=== PATIENT | male | born 1950 | race Caucasian/White ===

== ENCOUNTER 2019-10-05 07:28 | Inpatient (IN) | payer BC, OTHER ==
[~2019-10-05] VITALS: Ht 180.3 cm; Wt 121.2 kg
[2019-10-05] MEDS ORDERED: ACETAMINOPHEN ES 500 MG TABLET ONE (07:39)
--- NOTE | 2019-10-05 07:48 | NUR ---
patient [id number], from home, c/o cough, fever, chills x 2 days 95% on room air. Connected to the monitor and pulse ox. kept comfortable, will continue to monitor accordingly.
[2019-10-05] MEDS ORDERED: IV NS 0.9% 500 ML IV ONE (08:00)
[2019-10-05] MEDS ORDERED: ACETAMINOPHEN ES 500 MG TABLET PO ONE (08:00)
[2019-10-05 08:17] LABS: APPEARANCE,URINE Slightly Cloudy (CLEAR); BILIRUBIN,URINE MODERATE (NEGATIVE); BLOOD, URINE Large Ery/uL (NEGATIVE); COLOR,URINE Dark (YELLOW); KETONES,URINE 15 (NEGATIVE); LEUKOCYTE ESTERASE ,URINE Negative (NEGATIVE); NITRITE, URINE Negative (NEGATIVE); PH,URINE 5.5 (5.0-8.0); PROTEIN,URINE >=300 mg/dl (NEGATIVE); UGLUCOSE Negative (NEGATIVE)
[2019-10-05 08:24] LABS: BACTERIA,URINE Few /HPF (None Seen); SQUAMOUS EPITHELIAL CELL,UR Few /HPF (None Seen); WBC,URINE 0-1 /HPF (0-3)
[2019-10-05 08:27] LABS: BASOPHILS % (AUTO) 0.4 % (0.0-2.0); EOSINOPHILS % (AUTO) 0.2 % (0.0-6.0); HEMATOCRIT 43 % (39-51); HEMOGLOBIN 14.5 g/dL (13.5-17.5); LYMPHOCYTES # (AUTO) 0.3 /CMM (0.8-4.8); LYMPHOCYTES % (AUTO) 6.3 % (20.0-44.0); MEAN CORPUSCULAR HGB CONC 34 g/dl (31.0-36.0); MEAN CORPUSCULAR VOLUME 87 fL (80-96); MONOCYTES # (AUTO) 0.1 /CMM (0.1-1.30); MONOCYTES % (AUTO) 2.2 % (2.0-12.0); NEUTROPHILS # (AUTO) 4.7 /CMM (1.8-8.9); NEUTROPHILS % (AUTO) 90.9 % (43.0-81.0); PLATELET COUNT (AUTO) 83 /CMM (150-450); RED BLOOD CELL COUNT(AUTO) 4.88 MIL/uL (4.5-6.0); WHITE BLOOD COUNT (AUTO) 5.2 K/uL (4.3-11.0)
[2019-10-05 08:42] LABS: CALCIUM, SERUM 9.3 mg/dL (8.5-10.1); CARBON DIOXIDE 17 mmol/L (21-32); CHLORIDE 98 mmol/L (98-107); GLUCOSE 123 mg/dL (74-106); POTASSIUM 3.6 mmol/L (3.5-5.1); SODIUM SERUM 136 mmol/L (136-145); UREA NITROGEN, BLOOD 26 mg/dL (7-18)
[2019-10-05 08:49] LABS: ALANINE AMINOTRANSFERASE 118 U/L (12-78); ALBUMIN 3.5 g/dL (3.4-5.0); ALKALINE PHOSPHATASE 131 U/L (46-116); ASPARTATE AMINOTRANSFERASE 53 U/L (15-37); B-TYPE NATRIURETIC PEPTIDE 809 PG/ML (0-125); TOTAL PROTEIN, SERUM 7.4 g/dL (6.4-8.2)
[2019-10-05 08:58] LABS: CREATINE KINASE, TOTAL 279 U/L (39-308); FERRITIN 263 ng/mL (8-388)
[2019-10-05] MEDS ORDERED: ROSU10TA29 PO (09:04)
[2019-10-05] MEDS ORDERED: LANS30CA56 PO (09:04)
[2019-10-05] MEDS ORDERED: VALS1TAB54 PO (09:04)
[2019-10-05] MEDS ORDERED: TRAZ-252 PO (09:04)
[2019-10-05] MEDS ORDERED: GABA-532 PO (09:05)
[2019-10-05] MEDS ORDERED: METH500T6 PO (09:05)
[2019-10-05] MEDS ORDERED: OXYC5TAB3 PO (09:05)
[2019-10-05] MEDS ORDERED: TAMS-12 PO (09:05)
[2019-10-05] MEDS ORDERED: IV NS 0.9% 1,000 ML BAG IV ONE (09:30)
[2019-10-05 09:43] LABS: C-REACTIVE PROTEIN 25.9 mg/dL (0.0-0.9); D-DIMER 13.75 mg/L(FEU (0.17-0.50)
[2019-10-05] MEDS ORDERED: CEFTRIAXONE 1GM BAG (ER ONLY) 50 ML IV ONE (09:43)
--- NOTE | 2019-10-05 09:48 | NUR ---
systems test technician at bedside for exam
[2019-10-05] MEDS ORDERED: CEFTRIAXONE 1GM BAG (ER ONLY) 1 GM/50 ML PIGGYBACK IV ONE (10:00)
[2019-10-05 10:04] LABS: BAND % (MANUAL) 6 % (0.0-5.0); EOSINOPHILS % (MANUAL) 2 % (0-4); LYMPHOCYTES % (MANUAL) 7 % (16-48); MONOCYTES % (MANUAL) 5 % (0-11.0); NEUTROPHILS % (MANUAL) 80 (42-76)
--- NOTE | 2019-10-05 10:09 | NUR ---
NURSING SUP GAVE 111-1.
--- NOTE | 2019-10-05 10:39 | NUR ---
report given to Rachel GONZALEZ for dean
[2019-10-05] MEDS ORDERED: ONDANSETRON HCL/PF 4 MG/2 ML VIAL IVP PRN (11:00)
[2019-10-05] MEDS ORDERED: ACETAMINOPHEN 325 MG TABLET PO PRN (11:00)
[2019-10-05] MEDS ORDERED: AZITHROMYCIN 500 MG in IV D5W 250 ML IV SCH (11:00)
[2019-10-05 11:17] LABS: BILIRUBIN,DIRECT 2.7 mg/dL (0.0-0.2)
--- NOTE | 2019-10-05 11:18 | NUR ---
wheeled patient via gurney accompanied by RN and emt in no distress. RN at bedside to assume care.
[2019-10-05 12:00] VITALS: BP 132/76
[2019-10-05 12:16] LABS: ABG BASE EXCESS -4.1 mmol/L; ABG OXYGEN SATURATION 96.5 % (92.0-98.5); ABG PCO2 30.1 mmHg (35.0-45.0); ABG PO2 84.3 mmHg (75.0-100.0); AaDO2 29.4 mmHg; COHb 1.3 % (0.5-1.5); MetHb 0.3 % (0.0-1.5); SITE, ABG Right Radial; VENT MODE, BG RA
[2019-10-05 13:54] VITALS: BP 132/76
--- NOTE | 2019-10-05 15:06 | NUR ---
CABLE REPAIRER NOTE: RECEIVED PATIENT FROM ER AT 1109 TODAY. UPON ADMISSION, PATIENT IS SATING 95% ON RA, PER DR GRADY, PRN O2 2L/MIN VIA NC TO KEEP O2 SAT > 92% NO SIGNS OF RESPIRATORY DISTRESS NOTED. NO SIGNS OF ACUTE DISTRESS NOTED. PATIENT IS ALERT AND ORIENTED X4, RESPONDS APPROPRIATELY. SKIN INTACT. AMBULATORY, STEADY GAIT. #20 ON LAC, FLUSHES WELL, C/D/I, NO SIGNS OF COMPLICATIONS NOTED. FULL CODE. NKA. DR LIZ AWARE OF PATIENT'S ADMISSION WITH ADMITTING ORDERS. INFORMED HIM TO REVIEW AND COMPLETE MED [place]. ISOLATION PRECAUTIONS FOR POSSIBLE COVID 19. MRSA AND COVID SWAB TAKEN IN ER, AWAITING RESULTS. ADMITTING ASSESSMENT COMPLETE. SAFETY MEASURES IMPLEMENTED, BED IN LOWEST POSITION, LOCKED, SIDE RAILS UP X2, CALL LIGHT WITHIN REACH. WILL CONTINUE TO MONITOR PATIENT FOR CHANGES. Addendum: 10/05/19 at 1510 by MAGALI MEYER RN PATIENT ON TELE MONITOR, SR IN THE 70S.
[2019-10-05 16:00] VITALS: BP 119/71
[2019-10-05] MEDS ORDERED: ACETAMINOPHEN 650 MG/20.3 ML UDC PO PRN (17:00)
[2019-10-05] MEDS ORDERED: oxyCODONE IR immediate release 5 MG PO PRN (17:30)
[2019-10-05] MEDS: METHOCARBAMOL (500MG) 500 MG TABLET PO SCH (17:39)
[2019-10-05] MEDS: GABAPENTIN 100 MG CAPSULE PO SCH (17:39)
--- NOTE | 2019-10-05 19:08 | NUR ---
RN CLOSING NOTE: PATIENT REMAINS IN BED. NO SIGNS OF RESPIRATORY/ ACUTE DISTRESS NOTED. TELE MONITOR SR IN THE 80S. SAFETY MEASURES IMPLEMENTED, BED IN LOWEST POSITION, LOCKED, SIDE RAILS UP X2, CALL LIGHT WITHIN REACH. PATIENT HAS ONLY BEEN TAKING HLD MED, VALSARTAN AND FLOMAX, WILL ENDORSE TO PM RN TO FOLLOW UP WITH MD IN REGARDS TO POSSIBLE DC OF THE MEDS THAT HAVE BEEN RECONCILED DURING ADMISSION. ALSO, PATIENT STATED THAT HE HAS HAD 4 BM THAT ARE MORE LOOSE THAN USUAL, WILL ENDORSE TO ONCOMING SHIFT RN TO COLLECT STOOL FOR C. DIFF. ALSO, WILL ENDORSE TO ONCOMING SHIFT RN FOR CONTINUITY OF CARE.
--- NOTE | 2019-10-05 19:55 | NUR ---
RN NOTES RECEIVED PATIENT IN BED. NO SIGNS OF ACUTE RESPIRATORY/ ACUTE CARDIAC DISTRESS NOTED. TELE MONITOR SR IN THE 80S. SAFETY MEASURES IMPLEMENTED, BED IN LOWEST POSITION, LOCKED, SIDE RAILS UP X2, CALL LIGHT WITHIN REACH. PATIENT HAS ONLY BEEN TAKING HOME MED, VALSARTAN AND FLOMAX, WILL ENDORSE TO AM RN TO FOLLOW UP WITH MD IN REGARDS TO POSSIBLE DC OF THE MEDS THAT HAVE BEEN RECONCILED DURING ADMISSION. ALL NEEDS ANTICIPATED, REPOSITIONED FOR COMFORT. CALL LIGHT WITH IN EASY REACH, KEEP CLEAN WARM DRY AND COMFORTABLE.PATIENT STATED THAT HE HAS HAD 4 BM THAT ARE MORE LOOSE THAN USUAL, INSTRUCTED TO CALL US TO COLLECT SPECIMEN ONCE HE POOP. PATIENT VERBALIZED UNDERSTANDING. SPECIMEN CUP PROVIDED. WILL CONTINUE TO MONITOR ACCORDINGLY.
[2019-10-05 20:00] VITALS: BP 102/69
[2019-10-05] MEDS: DOXYCYCLINE 100 MG in IV NS 0.9% 100 ML IV SCH (21:24)
[2019-10-05] MEDS: TAMSULOSIN 0.4 MG CAP.SR.24H PO SCH ×2 (21:24→21:35)
[2019-10-05] MEDS: TRAZODONE 50 MG TABLET PO SCH ×2 (21:25→21:34)
[2019-10-06] VITALS (8 sets, daily range): BP systolic 111–142; BP diastolic 68–90
[2019-10-06 06:17] LABS: BASOPHILS % (AUTO) 0.7 % (0.0-2.0); EOSINOPHILS % (AUTO) 1.4 % (0.0-6.0); HEMATOCRIT 38 % (39-51); LYMPHOCYTES # (AUTO) 0.6 /CMM (0.8-4.8); LYMPHOCYTES % (AUTO) 7.9 % (20.0-44.0); MEAN CORPUSCULAR HGB CONC 35 g/dl (31.0-36.0); MEAN CORPUSCULAR VOLUME 86 fL (80-96); MONOCYTES # (AUTO) 0.6 /CMM (0.1-1.30); MONOCYTES % (AUTO) 8.5 % (2.0-12.0); NEUTROPHILS # (AUTO) 6.1 /CMM (1.8-8.9); NEUTROPHILS % (AUTO) 81.5 % (43.0-81.0); PLATELET COUNT (AUTO) 86 /CMM (150-450); RED BLOOD CELL COUNT(AUTO) 4.38 MIL/uL (4.5-6.0); WHITE BLOOD COUNT (AUTO) 7.5 K/uL (4.3-11.0)
[2019-10-06 06:37] LABS: BILIRUBIN,TOTAL 1.9 mg/dL (0.2-1.0); CALCIUM, SERUM 8.9 mg/dL (8.5-10.1); CREATININE 1.1 mg/dL (0.6-1.3); POTASSIUM 3.5 mmol/L (3.5-5.1); TOTAL PROTEIN, SERUM 6.5 g/dL (6.4-8.2)
--- NOTE | 2019-10-06 06:47 | NUR ---
RN NOTES ALL NEEDS ATTENDED AND MET, ABLE TO REST AND SLEPT AT INTERVASL. PATIENT IN BED. NO SIGNS OF ACUTE RESPIRATORY/ ACUTE CARDIAC DISTRESS NOTED. TELE MONITOR SR IN THE 80S. SAFETY MEASURES IMPLEMENTED, BED IN LOWEST POSITION, LOCKED, SIDE RAILS UP X2, CALL LIGHT WITHIN REACH. PATIENT HAS ONLY BEEN TAKING HOME MED, VALSARTAN AND FLOMAX, WILL ENDORSE TO AM RN TO FOLLOW UP WITH MD IN REGARDS TO POSSIBLE DC OF THE MEDS THAT HAVE BEEN RECONCILED DURING ADMISSION. ALL NEEDS ANTICIPATED, REPOSITIONED FOR COMFORT. CALL LIGHT WITH IN EASY REACH, KEEP CLEAN WARM DRY AND COMFORTABLE.PATIENT STATED THAT HE HAS HAD 4 BM THAT ARE MORE LOOSE THAN USUAL, INSTRUCTED TO CALL US TO COLLECT SPECIMEN ONCE HE POOP. PATIENT VERBALIZED UNDERSTANDING. SPECIMEN CUP PROVIDED. WILL ENDORSE TO AM NURSE FOR CONTINUITY OF CARE.
[2019-10-06 06:52] LABS: MAGNESIUM 2.2 mg/dL (1.8-2.4); PHOSPHORUS 1.8 mg/dL (2.5-4.9)
--- NOTE | 2019-10-06 08:00 | NUR ---
SHOE RECONDITIONER OPENING NOTES Received Patient resting in bed. A/O x 4. VS stable with no acute distress. Breathing even and unlabored on 2LPM via NC with no respiratory distress. Denies pain. Telemonitor in place and patent reading SR HR-64. 20g PIV on LAC clean, intact, patent and flushing well. Safety precautions in place. Bed locked and set to lowest position with side rails x 2 up. All needs rendered at this time. Call light within reach. Will continue to monitor.
[2019-10-06] MEDS: METHOCARBAMOL (500MG) 500 MG TABLET PO SCH ×3 (08:33→16:36)
[2019-10-06] MEDS: PANTOPRAZOLE 40 MG TABLET.DR PO SCH (08:33)
[2019-10-06] MEDS: GABAPENTIN 100 MG CAPSULE PO SCH ×2 (08:34→16:36)
[2019-10-06] MEDS: VALSARTAN 80 MG TABLET PO SCH (08:35)
[2019-10-06] MEDS ORDERED: HYDROCHLOROTHIAZIDE 25 MG TABLET PO SCH (09:00)
[2019-10-06] MEDS ORDERED: CEFTRIAXONE 1 G in IV D5W 50 ML IV SCH (10:00)
[2019-10-06] MEDS: DOXYCYCLINE 100 MG in IV NS 0.9% 100 ML IV SCH (10:19)
[2019-10-06] MEDS ORDERED: K PHOS NEUTRAL 250 MG TABLET PO ONE ×2 (10:30→11:00)
--- NOTE | 2019-10-06 13:40 | NUR ---
MS RN NOTES Obtained specimen for COVID test at this time. Sent specimen to lab. Patient in stable condition. Will continue to monitor.
--- NOTE | 2019-10-06 17:00 | NUR ---
MS RN NOTES Obtained sputum and stool specimen at this time and placed in fridge.
--- NOTE | 2019-10-06 17:20 | NUR ---
MS RN NOTES Obtained specimen for COVID test via oropharyngeal at this time. Sent specimen to [facility] from Lab. Patient in stable condition. Will continue to monitor.
[2019-10-06] MEDS: LEVOFLOXACIN 500 MG /D5W 100ML 500 MG in PREMIX 1 EA IV SCH (17:24)
--- NOTE | 2019-10-06 18:08 | NUR ---
MS RN NOTES Per Cedric CTC OPERATOR, "CDiff Colitis and WBC Stool Culture...and Restoril 30mg PO QHS PRN". Orders noted and carried out. Patient in stable condition. Will continue to monitor.
[2019-10-06] MEDS ORDERED: TEMAZEPAM 15 MG CAPSULE PO PRN (18:30)
--- NOTE | 2019-10-06 18:50 | NUR ---
MS RN CLOSING NOTES Patient resting in bed. A/O x 4. VS stable with no acute distress. Breathing even and unlabored on room air with no respiratory distress. Denies pain. 20g PIV on LAC clean, intact, patent and flushing well. Safety precautions in place. Bed locked and set to lowest position with side rails x 2 up. All needs rendered at this time. Call light within reach. Will endorse plan of care to oncoming shift.
--- NOTE | 2019-10-06 19:10 | NUR ---
MS RN OPENING NOTES Received Patient resting in bed. A/O x 4. VS stable with no acute distress. Breathing even and unlabored on RA with no respiratory distress. Denies pain. Telemonitor in place and patent reading SR HR-64. 20g PIV on LAC clean, intact, patent and flushing well. Safety precautions in place. Bed locked and set to lowest position with side rails x 2 up. Still on droplet isolation to r/o covid 19 second swad done pending results Call light within reach. Will continue to monitor.
[2019-10-06] MEDS: TAMSULOSIN 0.4 MG CAP.SR.24H PO SCH (21:00)
[2019-10-06] MEDS: TRAZODONE 50 MG TABLET PO SCH (21:00)
[2019-10-07] VITALS: BP 140/90
--- NOTE | 2019-10-07 06:52 | NUR ---
RN CLOSING NOTES PT ON BED ASLEEP AWAKE EASILY, NO SIGN AND SYMPTOMS OF RESPIRATORY DISTRESS SPO2 97% VIA RA, ON TELE MONITOR WITH READING SINUS [place] 60'S'S NO SIGNIFICANT CHANGES ON CONDITION NOTED, DROPLET ISOLATION MAINTAINED FOR R/O COVID ALL NEEDS ATTENDED SAFETY MEASURE MAINTAINED BED ON LOWEST POSITION AND LOCKED SIDE RAILS UP X2 CALL LIGHT WITHIN REACH WILL ENDORSED TO AM SHIFT NURSE
[2019-10-07] MEDS: PANTOPRAZOLE 40 MG TABLET.DR PO SCH (07:30)
[2019-10-07 08:00] VITALS: BP 133/78
[2019-10-07 08:16] LABS: CREATININE 1.1 mg/dL (0.6-1.3); PHOSPHORUS 3.1 mg/dL (2.5-4.9)
[2019-10-07 08:32] LABS: BASOPHILS % (AUTO) 0.4 % (0.0-2.0); EOSINOPHILS % (AUTO) 2.1 % (0.0-6.0); HEMATOCRIT 39 % (39-51); HEMOGLOBIN 13.5 g/dL (13.5-17.5); LYMPHOCYTES # (AUTO) 0.7 /CMM (0.8-4.8); LYMPHOCYTES % (AUTO) 13.3 % (20.0-44.0); MEAN CORPUSCULAR HGB CONC 34 g/dl (31.0-36.0); MEAN CORPUSCULAR VOLUME 86 fL (80-96); MONOCYTES # (AUTO) 0.7 /CMM (0.1-1.30); MONOCYTES % (AUTO) 13.6 % (2.0-12.0); NEUTROPHILS # (AUTO) 3.8 /CMM (1.8-8.9); NEUTROPHILS % (AUTO) 70.6 % (43.0-81.0); PLATELET COUNT (AUTO) 99 /CMM (150-450); RED BLOOD CELL COUNT(AUTO) 4.59 MIL/uL (4.5-6.0); WHITE BLOOD COUNT (AUTO) 5.3 K/uL (4.3-11.0)
[2019-10-07] MEDS: VALSARTAN 80 MG TABLET PO SCH (09:00)
[2019-10-07] MEDS: GABAPENTIN 100 MG CAPSULE PO SCH ×2 (09:00→17:50)
[2019-10-07] MEDS: METHOCARBAMOL (500MG) 500 MG TABLET PO SCH ×3 (09:00→17:50)
[2019-10-07 09:07] LABS: PTH, INTACT 43 pg/mL (15-65)
[2019-10-07] MEDS ORDERED: CEFTRIAXONE 2 G in IV D5W 50 ML IV SCH (10:00)
[2019-10-07] MEDS: CEFTRIAXONE 2 G in IV D5W 100 ML IV SCH (10:00)
[2019-10-07 10:08] LABS: *SPE ALBUMIN 2.8 g/dL (2.9-4.4); *SPE ALPHA-1-GLOBULIN 0.4 g/dL (0.0-0.4); *SPE ALPHA-2-GLOBULIN 0.9 g/dL (0.4-1.0); *SPE BETA GLOBULIN 0.8 g/dL (0.7-1.3); *SPE GLOBULIN, TOTAL 2.8 g/dL (2.2-3.9); *SPE M-SPIKE Not Observed g/dL (Not Observed); *SPEGAMMA GLOBULIN 0.7 g/dL (0.4-1.8)
[2019-10-07] MEDS: POTASSIUM CHLORIDE 20 MEQ TAB.PRT.SR PO SCH ×3 (11:00→13:00)
[2019-10-07 12:00] VITALS: BP 131/75
--- NOTE | 2019-10-07 14:04 | NUR ---
GAVE 1 DOSE OF POTASSIUM. DOUBLE CLICKED DOSAGE BY ACCIDENT. WILL GIVE TWO MORE DOSES.
--- NOTE | 2019-10-07 15:37 | NUR ---
FOLLOW UP COVID RESULT STILL PENDING.
[2019-10-07 16:00] VITALS: BP_SYST 126; BP_SYST 127; BP_DIAS 74
[2019-10-07] MEDS: LEVOFLOXACIN 500 MG /D5W 100ML 500 MG in PREMIX 1 EA IV SCH (17:50)
--- NOTE | 2019-10-07 18:43 | NUR ---
PATIENT IN BED RESTING. CALL LIGHT IN REACH. REQUESTED SLEEP MEDICATION FROM [employer] MECHANICAL MANUFACTURING ENGINEER. NO SIGNS AND SYMPTOMS OF PAIN, DISCOMFORT, OR SHORTNESS OF BREATH. BED IN LOW POSITION. CALL LIGHT IN REACH. WILL GIVE REPORT TO NIGHT NURSE.
--- NOTE | 2019-10-07 18:49 | NUR ---
nursing notified awaits clean bed pt. covid negative per md order.
--- NOTE | 2019-10-07 19:10 | NUR ---
RN NOTE RECEIVED PATIENT IN BED RESTING, WATCHING TV. A&O X4. BREATHING EVEN AND NON LABORED. NO SOB NOTED AT THIS TIME. ABLE TO MAKE NEEDS KNOWN, VERBALLY RESPONSIVE. SPEECH IS CLEAR. IN NO APPARENT DISTRESS NOTED AT THIS TIME. O2 SAT IS 99% ON ROOM AIR AT THIS TIME. IV SITE ON LEFT AC CLEAN, DRY, AND PATENT. SKIN IS INTACT. CALL LIGHT IS WITHIN EASY REACH. WILL CONTINUE TO MONITOR.
[2019-10-07 20:00] VITALS: BP 136/73
[2019-10-07] MEDS: TRAZODONE 50 MG TABLET PO SCH (21:04)
[2019-10-07] MEDS: TAMSULOSIN 0.4 MG CAP.SR.24H PO SCH (21:04)
--- NOTE | 2019-10-08 04:00 | NUR ---
RN NOTE PATIENT REFUSED 4 AM VITAL SIGNS. PATIENT DOES NOT WANT TO BE AWAKEN FOR ANY PROCEDURES OR TESTS AT THIS TIME. PATIENT IS A&O X4. WILL CONTINUE TO MONITOR.
--- NOTE | 2019-10-08 05:00 | NUR ---
0500 PATIENT STRONGLY REFUSED TO BE MOVED TO 3W UNIT AT THIS TIME. WHEN EXPLAINED TO HIM THE NEED/IMPORTANCE OF BEING MOVED TO CLEAN UNIT PATIENT UNDERSTOOD AND ACKNOWLEDGED BUT REQUESTED FOR IT TO BE DONE AFTER 0700. RESPECTED PATIENT'S WISH AND NOTIFIED IMPORTER OR EXPORTER ILEANA AND RECEIVING NURSE IN 3W.
--- NOTE | 2019-10-08 05:45 | NUR ---
RN NOTE PATIENT PERMITTED NURSING STAFF TO TRANSFER HIM TO [facility] VIA HOSPITAL BED AT THIS TIME. ALL BELONGINGS, MEDS, AND CHART TAKEN WITH PATIENT TO [facility]. PATIENT IN STABLE CONDITION UPON TRANSFER. REPORT GIVEN TO AMY RN FOR CONTINUATION OF CARE.
[2019-10-08 06:00] VITALS: BP 128/77
--- NOTE | 2019-10-08 06:00 | NUR ---
MS RN NOTES RECEIVED TRANSFER FROM [facility] BY BED,MED SURG STATUS.ALERT,ORIENTED X4,BREATHING NORMAL.SALINE LOCK LEFT AC INTACT AND PATENT.NO SKIN ISSUES.ORIGINALLY PLACE IN ROOM 315-1,BUT HE DOESNT WANT TO HAVE ROOMMATE.HE WANTS TO BE ALONE IN THE ROOM.CHARGE NURSE MADE AWARE.HE WAS PUT IN ROOM 329,WITH PATIENT PREFERENCE,INSTRUCTION BY THE DOOR.VITAL SIGNS WITH IN NORMAL LIMITS.WILL ENDORSE TO DAY NURSE FOR NEL.
[2019-10-08 08:00] VITALS: BP 127/71
[2019-10-08] MEDS: GABAPENTIN 100 MG CAPSULE PO SCH ×2 (09:00→17:00)
[2019-10-08] MEDS: VALSARTAN 80 MG TABLET PO SCH (09:01)
[2019-10-08] MEDS: METHOCARBAMOL (500MG) 500 MG TABLET PO SCH ×3 (09:01→17:00)
[2019-10-08] MEDS: PANTOPRAZOLE 40 MG TABLET.DR PO SCH (09:02)
[2019-10-08] MEDS: CEFTRIAXONE 2 G in IV D5W 100 ML IV SCH (09:08)
[2019-10-08 09:12] LABS: BASOPHILS # (AUTO) 0.1 /CMM (0.0-0.2); BASOPHILS % (AUTO) 1.1 % (0.0-2.0); EOSINOPHILS % (AUTO) 2.3 % (0.0-6.0); HEMATOCRIT 40 % (39-51); HEMOGLOBIN 13.5 g/dL (13.5-17.5); LYMPHOCYTES # (AUTO) 0.8 /CMM (0.8-4.8); LYMPHOCYTES % (AUTO) 15.2 % (20.0-44.0); MEAN CORPUSCULAR HGB CONC 34 g/dl (31.0-36.0); MEAN CORPUSCULAR VOLUME 86 fL (80-96); MONOCYTES # (AUTO) 0.7 /CMM (0.1-1.30); MONOCYTES % (AUTO) 12.2 % (2.0-12.0); NEUTROPHILS # (AUTO) 3.7 /CMM (1.8-8.9); NEUTROPHILS % (AUTO) 69.2 % (43.0-81.0); PLATELET COUNT (AUTO) 112 /CMM (150-450); RED BLOOD CELL COUNT(AUTO) 4.64 MIL/uL (4.5-6.0); WHITE BLOOD COUNT (AUTO) 5.4 K/uL (4.3-11.0)
[2019-10-08 09:46] LABS: CALCIUM, SERUM 9.2 mg/dL (8.5-10.1); CREATININE 1.1 mg/dL (0.6-1.3); POTASSIUM 3.7 mmol/L (3.5-5.1)
[2019-10-08 16:00] VITALS: BP 135/80
[2019-10-08 17:09] VITALS: BP 135/80
--- NOTE | 2019-10-08 19:45 | NUR ---
MS RN NOTES RECEIVED ON BED A/O X4,BREATHING REGULAR,NOT IN ANY FORM OF DISTRESS.NO PAIN AT THE MOMENT.SALINE LOCK LFA INTACT AND PATENT.PLANNED ULTRASOUND GUIDED DRAINING OF LEFT PSOAS MUSCLE ABSCESS TOMORROW,CONSENT SIGNED ON CHART.FEELING HUNGRY,GIVEN TUNA SANDWICH WITH APPLE JUICE PER PATIENT REQUEST.CALL LIGHT IN REACH,NEEDS ANTICIPATED.
[2019-10-08 20:00] VITALS: BP 143/82
[2019-10-08 20:56] VITALS: BP 143/82
[2019-10-08] MEDS: TRAZODONE 50 MG TABLET PO SCH (21:32)
--- NOTE | 2019-10-08 21:45 | NUR ---
MS RN NOTES REFUSED DUE FLOMAX 0.4MG PO THIS TIME.
[2019-10-08] MEDS: TAMSULOSIN 0.4 MG CAP.SR.24H PO SCH (22:00)
--- NOTE | 2019-10-09 06:22 | NUR ---
MS RN NOTES SLEPT WELL AT NIGHT WITH TRAZODONE.GOING FOR ULTRASOUND GUIDED DRAINING OF LEFT PSOAS MUSCLE ABSCESS THIS MORNING 10 AM.IN NO ACUTE DISTRESS.
[2019-10-09 07:44] LABS: CALCIUM, SERUM 9.2 mg/dL (8.5-10.1); POTASSIUM 3.7 mmol/L (3.5-5.1)
[2019-10-09] MEDS ORDERED: TEMA30CA5 PO (07:58)
--- NOTE | 2019-10-09 08:00 | NUR ---
MS RN OPENING NOTES Received Patient resting in bed. A/O x 4, VS stable with no acute distress. Breathing even and unlabored on room air with no respiratory distress. Denies pain. No signs and symptoms of pain. 22g PIV on LFA clean, intact, patent and flushing well. Safety precautions in place. Bed locked and set to lowest position with side rails x 2 up. All needs rendered a this time. Call light within reach. Will continue to monitor.
[2019-10-09 08:55] VITALS: BP 139/82
[2019-10-09] MEDS: PANTOPRAZOLE 40 MG TABLET.DR PO SCH (09:37)
[2019-10-09 09:38] VITALS: BP 139/82
[2019-10-09] MEDS: VALSARTAN 80 MG TABLET PO SCH (09:38)
[2019-10-09] MEDS: METHOCARBAMOL (500MG) 500 MG TABLET PO SCH ×2 (09:38→13:19)
[2019-10-09] MEDS: GABAPENTIN 100 MG CAPSULE PO SCH (09:38)
[2019-10-09] MEDS: CEFTRIAXONE 2 G in IV D5W 100 ML IV SCH (10:14)
--- NOTE | 2019-10-09 11:00 | NUR ---
MS RN NOTES Patient taken to Radiology at this time for CT Guided Drainage of Left Psoas Muscle Abscess. Patient in stable condition.
[2019-10-09] MEDS ORDERED: NALOXONE PREFILLED SYRINGE 2 MG/2 ML SYRINGE IV ONE (11:30)
[2019-10-09] MEDS ORDERED: MIDAZOLAM HCL 5MG/ML VIAL 25 MG/5 ML VIAL IV ONE (11:30)
[2019-10-09] MEDS ORDERED: FENTANYL PF 250MCG/5ML AMPUL IV ONE (11:30)
--- NOTE | 2019-10-09 11:46 | NUR ---
BRAXTON RN NOTES: Patient is awake and verbally responsive, patient signed consent for CT guided drain of left psoas muscle abscess. Patient verbalizes understanding.
--- NOTE | 2019-10-09 12:40 | NUR ---
RN NOTES:Post IR drainage Patient post IR drainage patient able to tolerated procedure, No discomfort noted or distress. Report given to floor nurse Pavel.
--- NOTE | 2019-10-09 12:50 | NUR ---
MS RN NOTES Patient returned to unit from Radiology at this time. Patient in stable condition. All needs rendered. Will continue to monitor.
--- NOTE | 2019-10-09 12:55 | NUR ---
MS RN NOTES Abscess fluid obtained from CT Guided Drainage of Left Psoas Muscle labeled and placed in fridge at this time.
--- NOTE | 2019-10-09 15:32 | NUR ---
MS FREIGHT SALES BROKER NOTES Patient discharged for home at this time. Patient in stable condition. VS stable with no acute distress. Breathing even and unlabored on room air with no respiratory distress. Denies pain. No signs and symptoms of pain. Skin intact. Medication reconciliation and discharge orders reviewed and explained to Patient. Patient verbalized understanding. All belongings with Patient. Patient will follow up with PCP in 1-2 weeks. Escorted Patient to the Lobby for safety. Patient picked up by , Tiffanie.
== END 2019-10-09 15:30 | disposition home or self-care (01) | DRG 871 ==
LOC: ER 07:30 → TELE1 10:14 → MEDSG1 10-06 11:33 → MED 10-08 05:44
PROVIDERS: ADMIT Internal Medicine; ATTEND Nurse Practitioner Acute Care
DX: A41.51 Sepsis due to Escherichia coli [E. coli] (principal); J18.9 Pneumonia, unspecified organism; K68.12 Psoas muscle abscess; I21.4 Non-ST elevation (NSTEMI) myocardial infarction; J96.01 Acute respiratory failure with hypoxia; N17.0 Acute kidney failure with tubular necrosis; E87.2 Acidosis; N13.30 Unspecified hydronephrosis; E66.2 Morbid (severe) obesity with alveolar hypoventilation; J98.11 Atelectasis; E78.5 Hyperlipidemia, unspecified; Z79.899 Other long term (current) drug therapy; I45.81 Long QT syndrome; K76.0 Fatty (change of) liver, not elsewhere classified; D69.6 Thrombocytopenia, unspecified; Z98.890 Other specified postprocedural states; N40.0 Benign prostatic hyperplasia without lower urinary tract symptoms; N28.1 Cyst of kidney, acquired; T39.395A Adverse effect of other nonsteroidal anti-inflammatory drugs [NSAID], initial encounter; Y92.009 Unspecified place in unspecified non-institutional (private) residence as the place of occurrence of the external cause; Z68.37 Body mass index [BMI] 37.0-37.9, adult; E86.0 Dehydration; E87.6 Hypokalemia; R65.20 Severe sepsis without septic shock
CPT/HCPCS: 36415; 36600; 71045-TC; 74181-TC; 75989; 75989-TC; 76705-TC; 80048-TC; 80053-TC; 80074; 81000-TC; 82248-TC; 82550-TC; 82553; 82728-TC; 83605-TC; 83615-TC; 83735-TC; 83880; 83970; 84100-TC; 84155; 84165; 84484-TC; 85025-TC; 85378-TC; 85385-TC; 85730-TC; 86140-TC; 87040-TC; 87045-TC; 87070-TC; 87081-TC; 87186-TC; 87806; 89055; 93307-TC; A4216; G0378; J0456; J0696; J1956; J2250; J2310; J3010; J3490; J7030; J7040; J7050; J7060; U0003-CS

== ENCOUNTER 2019-12-13 14:54 | Emergency (ER) | payer BC ==
[~2019-12-13] VITALS: Ht 182.9 cm; Wt 127.0 kg
[~2019-12-13 14:54] MED LIST: GABA-532 PO; LANS30CA56 PO; METH500T6 PO; OXYC5TAB3 PO; ROSU10TA29 PO; TAMS-12 PO; TEMA30CA5 PO; TRAZ-252 PO; VALS1TAB54 PO
--- NOTE | 2019-12-13 14:55 | NUR ---
PT BIB SELF C/O ABDOMINAL PAIN SINCE LAST NIGHT. PT IS AAOX3, NOT IN RESPIRATORY DISTRESS, HOOKED TO REHABILITATION AIDE/SCHEDULER, KEPT RESTED AND COMFORTABLE. WILL CONTINUE TO MONITOR.
--- NOTE | 2019-12-13 15:20 | NUR ---
IV LINE ESTABLISHED BLOOD DRAWN AND SENT TO LAB.
--- NOTE | 2019-12-13 15:25 | NUR ---
AT BEDSIDE FOR EVAL.
[2019-12-13] MEDS ORDERED: IV NS 0.9% 500 ML BAG IV ONE (15:30)
--- NOTE | 2019-12-13 15:48 | NUR ---
PRECISION GRINDER AT BEDSIDE FOR XRAY.
[2019-12-13 16:20] LABS: BASOPHILS # (AUTO) 0.1 /CMM (0.0-0.2); BASOPHILS % (AUTO) 0.5 % (0.0-2.0); EOSINOPHILS % (AUTO) 0.3 % (0.0-6.0); HEMATOCRIT 44 % (39-51); HEMOGLOBIN 14.6 g/dL (13.5-17.5); LYMPHOCYTES # (AUTO) 0.4 /CMM (0.8-4.8); LYMPHOCYTES % (AUTO) 4.2 % (20.0-44.0); MEAN CORPUSCULAR HGB CONC 34 g/dl (31.0-36.0); MEAN CORPUSCULAR VOLUME 88 fL (80-96); MONOCYTES # (AUTO) 0.2 /CMM (0.1-1.30); MONOCYTES % (AUTO) 2.1 % (2.0-12.0); NEUTROPHILS # (AUTO) 9.6 /CMM (1.8-8.9); NEUTROPHILS % (AUTO) 92.9 % (43.0-81.0); PLATELET COUNT (AUTO) 153 /CMM (150-450); RED BLOOD CELL COUNT(AUTO) 4.98 MIL/uL (4.5-6.0); WHITE BLOOD COUNT (AUTO) 10.4 K/uL (4.3-11.0)
[2019-12-13 16:33] LABS: CALCIUM, SERUM 9.5 mg/dL (8.5-10.1); CARBON DIOXIDE 27 mmol/L (21-32); CHLORIDE 99 mmol/L (98-107); CREATININE 1.3 mg/dL (0.6-1.3); GLUCOSE 160 mg/dL (74-106); POTASSIUM 3.8 mmol/L (3.5-5.1); SODIUM SERUM 136 mmol/L (136-145); UREA NITROGEN, BLOOD 22 mg/dL (7-18)
[2019-12-13] MEDS ORDERED: ACETAMINOPHEN ES 500 MG TABLET ONE (16:40)
[2019-12-13 16:46] LABS: ALANINE AMINOTRANSFERASE 263 U/L (12-78); ALBUMIN 3.9 g/dL (3.4-5.0); ALKALINE PHOSPHATASE 195 U/L (46-116); ASPARTATE AMINOTRANSFERASE 273 U/L (15-37); BILIRUBIN,DIRECT 1.5 mg/dL (0.0-0.2); BILIRUBIN,TOTAL 2.3 mg/dL (0.2-1.0); TOTAL PROTEIN, SERUM 7.2 g/dL (6.4-8.2)
[2019-12-13] MEDS ORDERED: ACETAMINOPHEN ES 500 MG TABLET PO ONE (17:00)
--- NOTE | 2019-12-13 17:06 | NUR ---
virus swab done and sent to lab
[2019-12-13 17:27] LABS: LIPASE 14225 U/L (73-393)
[2019-12-13 17:28] LABS: APPEARANCE,URINE Slightly Cloudy (CLEAR); BILIRUBIN,URINE MODERATE (NEGATIVE); BLOOD, URINE Negative Ery/uL (NEGATIVE); COLOR,URINE Dark (YELLOW); KETONES,URINE Negative (NEGATIVE); LEUKOCYTE ESTERASE ,URINE Negative (NEGATIVE); NITRITE, URINE Negative (NEGATIVE); PROTEIN,URINE 30 mg/dl (NEGATIVE); UGLUCOSE Negative (NEGATIVE)
[2019-12-13 18:01] LABS: BACTERIA,URINE Rare /HPF (None Seen); RBC,URINE 0-2 /HPF (0-2); SQUAMOUS EPITHELIAL CELL,UR Rare /HPF (None Seen); WBC,URINE 0-2 /HPF (0-3)
--- NOTE | 2019-12-13 18:20 | NUR ---
TECH AT BEDSIDE FOR US.
--- NOTE | 2019-12-13 18:54 | NUR ---
Paged Dr. Crawford for consult
--- NOTE | 2019-12-13 19:07 | NUR ---
REPORT GIVEN TO LISA ALVES FOR NEL.
--- NOTE | 2019-12-13 19:20 | NUR ---
Presented case to Candace with [facility] transfer center. The hospital is at capacity and unable to assist with transfer.
--- NOTE | 2019-12-13 19:26 | NUR ---
REPORT RECEIVED FROM DARRELL MOORE RN FOR NEL
--- NOTE | 2019-12-13 19:26 | NUR ---
PT HAS NO MEDICAL COMPLAINTS AT THIS TIME
--- NOTE | 2019-12-13 19:27 | NUR ---
Presented case to Silvestre with [facility] Transfer Center [phone]. Face sheet and clinical information faxed to [phone]
--- NOTE | 2019-12-13 20:16 | NUR ---
CALL FROM [facility]. UNABLE TO ACCEPT PT.
[2019-12-13] MEDS ORDERED: CEFTRIAXONE 500 MG VIAL ONE (22:00)
[2019-12-13] MEDS ORDERED: CEFTRIAXONE 500 MG VIAL IM ONE (22:00)
[2019-12-13] MEDS ORDERED: LIDOCAINE /MPF 1% VIAL 5 ML VIAL ONE (22:01)
--- NOTE | 2019-12-13 22:09 | NUR ---
Note jane in ED - 12/13/19 at 2210 by STAR Patient does not wish to proceed with medical care recommended by . Patient given information related to possible complications, up to and including , which could occur as a result of leaving the hospital at this time. Patient verbalizes understanding of risks involved due to leaving against medical advice. Patient has signed AMA form.
--- NOTE | 2019-12-13 22:10 | NUR ---
Patient does not wish to proceed with medical care recommended by Dr. Lujan. Patient given information related to possible complications, up to and including , which could occur as a result of leaving the hospital at this time. Patient verbalizes understanding of risks involved due to leaving against medical advice. Patient has signed AMA form.
[2019-12-13 22:11] VITALS: BP 124/84
== END 2019-12-13 22:11 | disposition left against medical advice (07) ==
LOC: ER 14:59
DX: K85.10 Biliary acute pancreatitis without necrosis or infection (principal); R25.1 Tremor, unspecified; E78.5 Hyperlipidemia, unspecified; I11.9 Hypertensive heart disease without heart failure; Z79.899 Other long term (current) drug therapy
CPT/HCPCS: 36415; 71045; 76705; 80048; 80076; 81001; 83605; 83690; 84484; 85025; 87040 ×2; 87086; 87426; 93005; 96372; 99285; J0696; J3490; J7040; 81000-TC